=== PATIENT | male | born 1995 | race Caucasian/White ===

== ENCOUNTER → 2018-09-05 | Outpatient (CLI) | payer OTHER ==
[~2018-09-05] MED LIST: DESYREL 100MG100 MG PO; DOXYCYCLINE 10100 MG PO; PRISTIQ 50 MG T50 MG PO
== END ==
LOC: ZCOL.LAB 16:57
DX: L02.91 Cutaneous abscess, unspecified (principal)

== ENCOUNTER → 2018-11-23 | Outpatient (CLI) | payer OTHER | LOC: BHSO 10:02 | DX: F41.1 Generalized anxiety disorder (principal) ==

== ENCOUNTER 2019-03-27 19:48 | Emergency (ER) | payer OTHER ==
[~2019-03-27] VITALS: Ht 177.8 cm; Wt 68.2 kg
[2019-03-27 21:28] LABS: BASO % 0.6 % (0.0-2.0); EOS % 0.3 % (0-4.0); GRAN % 57.2 % (42.2-75.2); LYMPH # 2.3 (1.2-3.4); LYMPH % 32.3 % (20.0-51.0); MEAN CELL VOLUME 92 fl (80.0-100.0); MEAN CORPUSCULAR HGB CONC 36 g/dl (33.0-37.0); MONO # 0.7 (0.1-0.6); MONO % 9.3 % (1.7-9.3); PLATELET COUNT 313 K/mm3 (130-400); RED BLOOD COUNT 5.86 M/mm3 (4.20-5.60); REDCELL DISTRIBUTION WIDTH-CV 12.3 % (11.5-14.5)
[2019-03-27 21:29] LABS: HEMATOCRIT 54.1 % (42.0-52.0); HEMOGLOBIN 19.3 g/dl (13.5-18.0); MEAN CORPUSCULAR HEMOGLOBIN 33 pg (27.0-31.0)
[2019-03-27 21:37] LABS: COLLECTION METHOD CLEAN CATCH
[2019-03-27 21:39] LABS: ALANINE AMINOTRANSFERASE 103 U/L (21-72); ALBUMIN 5.2 gm/dL (3.5-5.0); ALCOHOL(ethanol),MEDICAL 252 mg/dL; ALKALINE PHOSPHATASE 65 U/L (50-136); ANION GAP 14 mmol/L (7-16); AST,SGOT 89 U/L (15-37); BILIRUBIN,TOTAL 0.6 mg/dL (0.0-1.0); BLOOD UREA NITROGEN 7 mg/dL (9-20); CALCIUM 9.7 mg/dL (8.4-10.2); CARBON DIOXIDE 29 mmol/L (22-30); CHLORIDE 103 mmol/L (98-107); CREATININE, serum 0.97 (0.66-1.25); GLUCOSE 121 mg/dL (74-106); POTASSIUM 3.8 mmol/L (3.4-5.0); SODIUM 146 mmol/L (137-145); TOTAL PROTEIN 8.7 gm/dL (6.4-8.2)
[2019-03-27 21:41] LABS: ACETAMINOPHEN < 10 ug/mL (10-30); SALICYLATE < 1.0 mg/dL
[2019-03-27 21:48] LABS: MUCOUS Present /lpf; PH 7 (5-8); SQUAMOUS EPITHELIAL 0-2 /hpf; URINE APPEARANCE Clear; URINE BACTERIA None Seen /hpf; URINE BILIRUBIN Negative (NEGATIVE); URINE BLOOD Negative (NEGATIVE); URINE COLOR Yellow; URINE GLUCOSE Negative (NEGATIVE); URINE KETONE Negative (NEGATIVE); URINE LEUKOCYTE ESTERASE Negative (NEGATIVE); URINE NITRATE Negative (NEGATIVE); URINE PROTEIN(semi-quant) Negative (NEGATIVE); URINE RBC 0-2 /hpf; URINE UROBILINOGEN Negative (NEGATIVE)
[2019-03-27 22:03] LABS: TRICYCLIC ANTIDEPRESS URINE NEGATIVE
[2019-03-28 04:37] VITALS: BP 143/91; PULSE 110; TEMP 98.5
== END 2019-03-28 04:37 | disposition home or self-care (01) ==
LOC: COL.ER 19:48
PROVIDERS: Nurse Practitioner
DX: R45.851 Suicidal ideations (principal); F10.129 Alcohol abuse with intoxication, unspecified; Y90.3 Blood alcohol level of 60-79 mg/100 ml; F17.210 Nicotine dependence, cigarettes, uncomplicated

== ENCOUNTER 2022-08-27 09:25 | Inpatient (IN) | payer SELFPAY ==
[~2022-08-27] VITALS: Ht 177.8 cm; Wt 158.4 kg
[2022-08-27 10:23] LABS: BASO % 0.3 % (0.0-2.0); EOS % 0.5 % (0.0-4.0); GRAN # 6.7 K/mm3 (1.4-6.5); GRAN % 75.5 % (42.2-75.2); HEMATOCRIT 42.7 % (42.0-52.0); HEMOGLOBIN 14.9 g/dl (13.5-18.0); LYMPH # 1.2 K/mm3 (1.2-3.4); LYMPH % 14.1 % (20.0-51.0); MEAN CELL VOLUME 92 fl (80.0-100.0); MEAN CORPUSCULAR HEMOGLOBIN 32 pg (27-31); MEAN CORPUSCULAR HGB CONC 35 g/dl (33.0-37.0); MEAN PLATELET VOLUME 10.6 fl (7.4-10.4); MONO # 0.8 K/mm3 (0.1-0.6); MONO % 9.3 % (1.7-9.3); PLATELET COUNT 197 K/mm3 (130-400); RED BLOOD COUNT 4.66 M/mm3 (4.20-5.60); REDCELL DISTRIBUTION WIDTH-CV 12.3 % (11.5-14.5)
[2022-08-27 10:36] LABS: ALBUMIN 3.8 gm/dL (3.5-5.0); BILIRUBIN,TOTAL 0.8 mg/dL (0.2-1.2); C-REACTIVE PROTEIN 2.74 mg/dL (0.00-0.50); CALCIUM 9.1 mg/dL (8.4-10.2); CREATININE, serum 0.88 mg/dL (0.72-1.25); POTASSIUM 4.6 mmol/L (3.5-4.5)
--- NOTE | 2022-08-27 12:27 | NUR ---
Vancomycin Initial Dosing Pharmacy Note Ordering provider: Sanket Indication/duration: Cellulitis, 10 days LABS: SCr 0.88, CrCl~114, GFR 121 Recommendation: Will start Vancomycin 1 gm IV q8h. Pharmacy will continue to closely monitor and check a Vancomycin trough on 08/29/22. Loading dose: 1.5 grams Maintenance dose: 1 gram every 8 hours Trough goal: 10-15 ug/mL
[2022-08-27 13:39] VITALS: BP 150/75; PULSE 113; TEMP 98.1
--- NOTE | 2022-08-27 13:39 | NUR ---
Pt to room 351 on the medical floor. Pt is A&Ox4. LCTA. HR regular rhythm, tachy. BSx4. INT in L forearm in patent with coban in place. Radial and pedal pulses strong GEETA. RLE is red/warm/edematous from ankle to feet, elevated on pillow. Pt c/o dull RLE pain 5/10. Pt given hygiene items for shower. Call light within reach.
[2022-08-27 16:58] VITALS: BP 132/66; PULSE 120; TEMP 97.9
--- NOTE | 2022-08-27 19:46 | NUR ---
Pt called and said: "I need to check out". this [employer]S SALESPERSON went to check on pt and he stated needing to leave MED due to his dog, since his friend notified him that he wasn't able to take care of the dog anymore. rn support services was notified. SONALI Zhang went to talk with pt of the risks of leaving the hospital right now. Pt verbalized understanding and stated he still wants to proceed with his decision. Informed consent to refuse was signed.
--- NOTE | 2022-08-27 19:47 | NUR ---
Was notified by FENCE SUPERVISOR of pts desire to leave AMA at this time- did go talk with patient- right foot lower leg remains red/warm,, informed pt he needs the IV antibiotics but he said he has to leave to care for his dog-- Leatha LYON called, and here to see pt- insists on leaving AMA- AMA form signed by pt.
[2022-08-27] MEDS ORDERED: BACTRIM DS 8001 TAB PO (19:48)
--- NOTE | 2022-08-27 20:15 | NUR ---
Pt was in a hurry to leave the hospital. LFA INT was DC with tip intact. Pt was informed of medication that was sent to his pharmacy, and verbalized understanding about picking them up. He was assisted to leave the hospital in a wheelchair. No other needs or concerns were expressed.
== END 2022-08-27 20:15 | disposition left against medical advice (07) | DRG 603 ==
LOC: COL.ER 09:25 → MEDICAL 12:12
PROVIDERS: Emergency Medicine; ADMIT Internal Medicine
DX: L03.115 Cellulitis of right lower limb (principal); E87.20 Acidosis, unspecified; Z53.21 Procedure and treatment not carried out due to patient leaving prior to being seen by health care provider; F17.210 Nicotine dependence, cigarettes, uncomplicated; Z59.00 Homelessness unspecified
CPT/HCPCS: J0696; J1644; J1885; J2405; J2543; J3370; J7050; J7120

== ENCOUNTER 2022-08-28 14:21 | Emergency (ER) | payer SELFPAY ==
[~2022-08-28] VITALS: Ht 177.8 cm; Wt 72.7 kg
[~2022-08-28 14:21] MED LIST changes: +BACTRIM DS 8001 TAB PO
[2022-08-28 14:32] VITALS: BP 162/86; PULSE 112; TEMP 97.7
== END 2022-08-28 16:36 | disposition home or self-care (01) ==
LOC: COL.ER 14:21
DX: L03.115 Cellulitis of right lower limb (principal); F17.200 Nicotine dependence, unspecified, uncomplicated; Z28.310 Unvaccinated for COVID-19